=== PATIENT | male | born 1945 | race Two or more races ===

== ENCOUNTER 2021-10-29 07:34 | Emergency (ER) | payer SELFPAY | END 2021-10-29 08:41 | disposition E | LOC: ER1 07:34 | DX: I46.9 Cardiac arrest, cause unspecified (principal); E11.9 Type 2 diabetes mellitus without complications; I10 Essential (primary) hypertension; E78.5 Hyperlipidemia, unspecified | CPT/HCPCS: 31500; 92950; 99284 ==